=== PATIENT | female | born 1940 | race Caucasian/White ===

== ENCOUNTER 2017-03-01 09:44 | Outpatient (CLI) | payer MEDICARE ==
--- NOTE | 2017-03-01 13:16 | BD ---
BONE DENSITOMETRY USING DEXA: Date: 03/01/17 HISTORY: 76-year-old female with history of postmenopausal screening. FINDINGS: Lumbar Spine: BMD (g/cm2) L1 1.167 T-Score: 1.6 L2 1.22 T-Score: +1.8 L3 1.274 T-Score: +1,7 L4 1.322 T-Score: +2.4 L1-L4 1.255 T-Score: +1.9 Within normal limits, although there is some associated sclerosis which may be falsely elevating thi s bone mineral density. Left Hip: Femoral Neck: 0.737 T-Score: -1.0 Total Femur: 0.870 T-Score: -0.6 Within normal limits, with no increased risk for fracture. FRAX score was not reported because all T-scores are at or above -1.0. POS: [facility]
== END 2017-03-01 09:45 | disposition home or self-care (01) ==
LOC: MAMMO 09:44
PROVIDERS: ATTEND Family Medicine
DX: Z78.0 Asymptomatic menopausal state (principal); E28.39 Other primary ovarian failure
CPT/HCPCS: 77080

== ENCOUNTER 2017-11-14 11:10 | Outpatient (CLI) | payer MEDICARE ==
--- NOTE | 2017-11-19 13:14 | MMO ---
SCREENING MAMMOGRAPHY: Date: 11-14-17 Comparison: 07-01-12 History: Screening mammography. FINDINGS: This study is interpreted with the assistance of computer aided detection. There are scattered fibroglandular densities present. Benign calcification is seen bilaterally. There is no dominant mass or architectural distortion. No concerning microcalcifications. IMPRESSION: BIRADS 2 - benign findings. Annual screening mammography advised. POS: [facility]
== END 2017-11-14 11:11 | disposition home or self-care (01) ==
LOC: SCSMAMMO 11:10
PROVIDERS: ATTEND Internal Medicine Hematology & Oncology
DX: Z12.31 Encounter for screening mammogram for malignant neoplasm of breast (principal)
CPT/HCPCS: 77067